=== PATIENT | male | born 1990 | race Two or more races ===

== ENCOUNTER 2024-11-16 05:46 | Emergency (ER) | payer OTHER ==
[~2024-11-16] VITALS: Ht 177.8 cm; Wt 91.0 kg
[2024-11-16 06:00] VITALS: BP 122/84; PULSE 100; RESP 18; TEMP 97.6; O2SAT 98
--- NOTE | 2024-11-16 07:37 | ED.PDOC ---
Psychiatric HPI Comments 33-year-old male presents here with symptoms of alcohol withdrawal. He states he was sober for 6-7 months and 6-7 days ago he started drinking again. He states however yesterday he wanted to quit and stop drinking. Last drink proximally 8:30 p.m. which is proximally 12 hours ago. Patient states he has had the shakes had some hallucinations, nausea. He states he called 911. He has had significant vomiting. He was given Zofran and failed. Patient states he used to go to [employer]. Does not currently have a sponsor but we will be joining [employer] [facility]. Patient does not plan to drank upon leaving here. States no other drug use has been done. Denies any injuries. Denies any falls. Denies any headache. Chief Complaint: Withdrawal Time Seen by MD: 06:19 Reviewed Notes: Medications, Allergies Information Source: Patient Mode of Arrival: EMS Past Medical History PAST MEDICAL HISTORY: Depression Surgical History: Denies all surgeries Family History Family History: Unknown Social History Smoker: Non-Smoker Alcohol: Heavy Drugs: Denies Drug Use Lives In: Home Constitutional: reports: chills; denies: diaphoresis, fatigue, fever, malaise, sweats, weakness, others EENTM: denies: blurred vision, double vision, ear bleeding, ear discharge, ear drainage, ear pain, ear ringing, eye pain, eye redness, hearing loss, mouth pain, mouth swelling, nasal discharge, nose bleeding, nose congestion, nose pain, photophobia, tearing, throat pain, throat swelling, voice changes, others Respiratory: denies: cough, hemoptysis, orthopnea, SOB at rest, shortness of breath, SOB with excertion, stridor, wheezing, others Cardiovascular: denies: chest pain, dizzy spells, diaphoresis, Dyspnea on exertion, edema, irregular heart beat, left arm pain, lightheadedness, palpitations, PND, syncope, others Gastrointestinal: reports: nausea, vomiting; denies: abdomen distended, abdominal pain, blood streaked bowels, constipated, diarrhea, dysphagia, difficulty swallowing, hematemesis, melena, poor appetite, poor fluid intake, rectal bleeding, rectal pain, others Genitourinary: denies: burning, dysuria, flank pain, frequency, hematuria, incontinence, penile discharge, penile sore, pain, testicle pain, testicle swelling, urgency, others Neurological: denies: dizziness, fainting, headache, left sided numbness, left sided weakness, numbness, paresthesia, pre-existing deficit, right sided numbness, right sided weakness, seizure, speech problems, tingling, tremors, weakness, others Musculoskeletal: denies: back pain, gout, joint pain, joint swelling, muscle pain, muscle stiffness, neck pain, others Integumetry: denies: bruises, change in color, change in hair/nails, dryness, laceration, lesions, lumps, rash, wounds, others Allergic/Immunocompromised: denies: Difficulty Healing, Frequent Infections, Hives, Itching, others Hematologic/Lymphatic: denies: anemia, blood clots, easy bleeding, easy brui sing, swollen glands, others Endocrine: denies: excessive hunger, excessive sweating, excessive thirst, ex cessive urination, flushing, intolerance to cold, intolerance to heat, unexplained weight gain, unexplained weight loss, others Psychiatric: reports: others (hallucinations); denies: anxiety, bipolar disorder, depression, hopeless, panic disorder, schizophrenia, sleepless, suicidal All Other Systems: Reviewed and Negative Physical Exam General Appearance: Moderate Distress, No Apparent Distress, Normal HEENT: Normal ENT Inspection, Pharynx Normal, TMs Normal Neck: Full Range of Motion, Non-Tender, Normal, Normal Inspection Respiratory: Chest Non-Tender, Lungs Clear, No Accessory Muscle Use, No Re spiratory Distress, Normal Breath Sounds Cardiovascular: No Edema, No JVD, No Murmur, No Gallop, Normal Peripheral Pulses, Regular Rate/Rhythm Breast Exam: Deferred Gastrointestinal: No Organomegaly, Non Tender, No Pulsatile Mass, Normal Bowel Sounds, Soft Genitalia: Deferred Pelvic: Deferred Rectal: Deferred Extremities: No calf tenderness, Normal capillary refill, Normal inspection, Normal range of motion, Non-tender, No pedal edema Musculoskeletal : Apperance: Normal 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 Was a procedure done?: No Psych Differential Dx Psych. Differential Dx: Depression OD Differential Dx: Alcohol Abuse Intoxication Differential Dx: Alcohol Withdraw Syndrome, Dehydration, Intoxication, Substance Abuse Disorder, Thiamine Deficiency X-Ray, Labs, Meds, VS Vital Signs Date Time Temp Pulse Resp B/P (MAP) Pulse Ox O2 Delivery O2 Flow Rate FiO2 11/16/24 06:00 97.6 100 18 122/84 98 97.6 33-year-old male presents here with alcohol withdrawal. At this time I have given him IV fluids, Zofran IV and multivitamin in the ER. I discussed plan for discharge. He agreed that it does not want to drink anymore. He will be joining [facility] again. I have given him a prescription for Librium and Zofran at home. Advised him strongly that he is unable to drank while taking the medication. Patient agreeable. I advised him however once he received medications we would re-evaluate again. After receiving the medications however the patient eloped. He ripped off his ID and then eloped. Per davidson Uriostegui. Time of 1ST Reevaluation: 08:00 Reevaluation 1ST: Unchanged Patient Education/Counseling: Diagnosis, Treatment Family Education/Counseling: No Family Present Departure 1 Departure Time of Disposition: 10:16 Impression: Primary Impression: Alcohol withdrawal Qualified Codes: F10.939 - Alcohol use, unspecified with withdrawal, unspecified Disposition: 07 LEFT AWOL/ELOPED Condition: Serious e-Prescriptions Ondansetron Odt 4MG Tab (ZOFRAN PO) 4 Mg Tb 4 MG PO Q6HPRN PRN for 5 Days, #20 TAB ODT TAB-DISSOLVE IN MOUTH, THEN SWALLOW Prov: MARAH DOHERTY MD 11/16/24 Chlordiazepoxide Hcl (Librium) 25 Mg Cp 25 MG GT Q4HPRN PRN for 5 Days, #20 CAP Prov: MARAH DOHERTY MD 11/16/24 Critical Care Note Critical Care Time?: No Stability Stability form required: No Heart Score Heart Score: Heart Score Response (Comments) Value History N/A 0 EKG N/A 0 Age N/A 0 Risk Factors N/A 0 Troponin N/A 0 Total 0 I personally scribed for MARAH DOHERTY MD ([email or web address]) on 11/16/24 at 07:37. Electronically submitted by Hedy Ramsay ([email or web address]). I personally scribed for MARAH DOHERTY MD ([email or web address]) on 11/16/24 at 07:51. Electronically submitted by Hedy Ramsay ([facility]). I personally scribed for MARAH DOHERTY MD ([email or web address]) on 11/16/24 at 08:02. Electronically submitted by Hedy Ramsay ([facility]). I personally scribed for MARAH DOHERTY MD ([email or web address]) on 11/16/24 at 08:03. Electronically submitted by Hedy Ramsay ([facility]). I personally scribed for MARAH DOHERTY MD ([email or web address]) on 11/16/24 at 08:16. Electronically submitted by [facility] ([facility]). MARAH DOHERTY MD Nov 16, 2024 07:37
[2024-11-16] MEDS ORDERED: CHL25C GT (07:42)
[2024-11-16] MEDS ORDERED: ZOFR4T PO (07:42)
[2024-11-16] MEDS ORDERED: LORazepam 2MG/ML-1ML VIAL IV ONE (07:45)
[2024-11-16] MEDS ORDERED: ONDANSETRON HCL 4 MG/2 ML VIAL IM ONE (07:45)
[2024-11-16] MEDS ORDERED: SODIUM CHLORIDE 0.9% 2,200 ML IV ONE (07:45)
== END 2024-11-16 13:28 | disposition left against medical advice (07) ==
LOC: EDBD 05:46 → ER 05:50
DX: F10.939 Alcohol use, unspecified with withdrawal, unspecified (principal); Y90.9 Presence of alcohol in blood, level not specified